=== PATIENT | male | born 1995 | race African-American/Black ===

== ENCOUNTER 2017-07-24 12:27 | Emergency (ER) | payer SELFPAY ==
--- NOTE | 2017-07-24 13:17 | ER Document Report ---
ED Hand/Wrist Injury - General Chief Complaint: Finger Injury Stated Complaint: FINGER PAIN Time Seen by Provider: 07/24/17 13:12 Notes: patient is a 22 year old male that presents complaining of right middle finger pain and swelling. states he was playing soccer and his friend kicked his finger. this happened one week ago. He has full ROM. been playing basketball and soccer all week. TRAVEL OUTSIDE OF THE [place] IN LAST 30 DAYS: No - Related Data Allergies/Adverse Reactions: No Known Allergies Allergy (Verified 07/24/17 12:31) Past Medical History - Social History Smoking Status: Unknown if Ever Smoked Family History: Reviewed & Not Pertinent Patient has suicidal ideation: No Patient has homicidal ideation: No Renal/ Medical History: Denies: Hx Peritoneal Dialysis Review of Systems - Review of Systems Constitutional: No symptoms reported Musculoskeletal: See HPI -: Yes All other systems reviewed and negative Physical Exam - Vital signs Vitals: Temp Pulse Resp BP Pulse Ox 98.2 F 48 L 16 115/56 L 99 07/24/17 12:32 07/24/17 12:32 07/24/17 12:32 07/24/17 12:32 07/24/17 12:32 - General General appearance: Appears well, Alert In distress: None - Cardiovascular Pulses: Normal: Radial Normal capillary refill: Yes - Extremities Forearm: Normal, Nontender Wrist: Normal, Nontender Hand: Normal, Nontender, Swelling - around righ third PIP, Other - pain with resistance to finger flexion otherwise normal ROM. No: Abrasion, Deformity, Dislocation, Ecchymosis, Instability, Laceration, Nail injury, No evidence of human bite, No evidence of FB, Tendon deficit Course - Re-evaluation Re-evalutation: 07/24/17 14:25 Patient is a 22-year-old male is hemodynamically stable, no acute distress and afebrile. No evidence of septic arthritis, fracture or dislocation. Presentation, physical exam and x-ray findings consistent with a finger sprain. No evidence of fracture dislocation or joint effusion noted on x-ray. Patient placed in splint per request and stable for discharge home. - Vital Signs Vital signs: Temp Pulse Resp BP Pulse Ox 97.8 F 44 L 16 118/69 100 07/24/17 14:17 07/24/17 14:17 07/24/17 14:17 07/24/17 14:17 07/24/17 14:17 - Diagnostic Test Radiology reviewed: Image reviewed, Reports reviewed Discharge - Discharge Clinical Impression: Finger injury Condition: Good Disposition: HOME, SELF-CARE Instructions: Use of Gjhr-[id number]-Snrrlvb Ibuprofen ([facility]), Sprained Finger ([facility])
--- NOTE | 2017-07-24 13:36 | RADIOLOGY REPORT (SQ) ---
EXAM DESCRIPTION: FINGER RIGHT COMPLETED DATE/TIME: 07/24/2017 1:22 pm REASON FOR STUDY: right 3rd digit, kicked in finger COMPARISON: None. NUMBER OF VIEWS: Three views. TECHNIQUE: AP, lateral, and oblique images acquired of the right 3RD (MIDDLE) FINGER LIMITATIONS: None. FINDINGS: MINERALIZATION: Normal. BONES: No acute fracture or dislocation. No worrisome bone lesions. SOFT TISSUES: Diffuse soft tissue swelling right 3rd finger at the PIP joint. No radiopaque foreign body. No soft tissue gas. OTHER: No other significant finding. IMPRESSION: Soft tissue swelling right 3rd finger PIP joint. No displaced acute fracture is identif ied. COMMENT: SITE OF TRAUMA/COMPLAINT MARKED/STAMP COMPLETED: Yes TECHNICAL DOCUMENTATION: JOB ID: [id number] [employer]- All Rights Reserved
[2017-07-24 14:20] VITALS: BP 118/69
== END 2017-07-24 14:21 | disposition home or self-care (01) ==
LOC: ER 12:27
DX: S69.90XA Unspecified injury of unspecified wrist, hand and finger(s), initial encounter (principal); M79.644 Pain in right finger(s); M79.89 Other specified soft tissue disorders; W50.0XXA Accidental hit or strike by another person, initial encounter; Y93.66 Activity, soccer
CPT/HCPCS: 99283